=== PATIENT | male | born 1970 | race Caucasian/White ===

== ENCOUNTER 2016-10-08 04:26 | Emergency (ER) | payer MEDICAID ==
[2016-10-08] MEDS ORDERED: AZITHROMYCIN 250 MG TABLET PO STA (05:06)
[2016-10-08] MEDS ORDERED: DEXAMETHASONE 10 MG/ML VIAL PO STA (05:06)
[2016-10-08] MEDS ORDERED: DEXAMETHASONE 10 MG/ML VIAL ONE (05:12)
[2016-10-08] MEDS ORDERED: AZITHROMYCIN 250 MG TABLET PO ONE (05:12)
== END 2016-10-08 06:52 | disposition home or self-care (01) ==
DX: S80.11XA Contusion of right lower leg, initial encounter (principal); V18.4XXA Pedal cycle driver injured in noncollision transport accident in traffic accident, initial encounter; Y93.55 Activity, bike riding; Y92.410 Unspecified street and highway as the place of occurrence of the external cause; H66.002 Acute suppurative otitis media without spontaneous rupture of ear drum, left ear; F17.200 Nicotine dependence, unspecified, uncomplicated
CPT/HCPCS: 73590; 99283; A9270

== ENCOUNTER 2016-11-01 00:35 | Emergency (ER) | payer MEDICAID | END 2016-11-01 02:04 | disposition home or self-care (01) | DX: S63.502A Unspecified sprain of left wrist, initial encounter (principal); V18.4XXA Pedal cycle driver injured in noncollision transport accident in traffic accident, initial encounter; Y93.55 Activity, bike riding; Y92.488 Other paved roadways as the place of occurrence of the external cause; F17.200 Nicotine dependence, unspecified, uncomplicated ==

== ENCOUNTER 2017-06-23 17:55 | Outpatient (CLI) | payer OTHER, MEDICAID | END 2017-06-23 17:56 | disposition critical access hospital (66) | LOC: EMS 17:55 | PROVIDERS: ATTEND Surgery | DX: S80.211A Abrasion, right knee, initial encounter (principal); V03.19XA Pedestrian with other conveyance injured in collision with car, pick-up truck or van in traffic accident, initial encounter; Y93.55 Activity, bike riding; Y92.413 State road as the place of occurrence of the external cause | CPT/HCPCS: A0425; A0429 ==

== ENCOUNTER 2017-08-31 19:03 | Emergency (ER) | payer OTHER, MEDICAID ==
[2017-08-31] MEDS ORDERED: IBUPROFEN 800 MG TABLET PO STA (19:18)
[2017-08-31] MEDS ORDERED: HYDROcod/ACETAM 5/325 MG TABLET PO STA (19:18)
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
[2017-08-31 19:26] VITALS: BP 131/68
== END 2017-08-31 19:27 | disposition home or self-care (01) ==
LOC: ED 19:03
DX: M54.41 Lumbago with sciatica, right side (principal); V13.0XXA Pedal cycle driver injured in collision with car, pick-up truck or van in nontraffic accident, initial encounter; F17.200 Nicotine dependence, unspecified, uncomplicated
CPT/HCPCS: 99283; A9270

== ENCOUNTER 2017-09-15 13:03 | Outpatient (CLI) | payer OTHER, MEDICAID ==
--- NOTE | 2017-09-16 17:42 | XRAY Report ---
DATE OF SERVICE: 09/15/2017 TWO VIEW THORACIC SPINE: 09/15/2017 CLINICAL INDICATION: Back pain. Frontal and lateral views of the thoracic spine demonstrate mild degenerative disk disease. There is no evidence of fracture. No paraspinal hematoma is seen. IMPRESSION: Mild degenerative changes. No evidence of compression fracture. TD: 09/16/2017 18:41
--- NOTE | 2017-09-16 17:43 | XRAY Report ---
DATE OF SERVICE: 09/15/2017 THREE VIEW LUMBAR SPINE: 09/15/2017 CLINICAL INDICATION: Back pain. AP, lateral, coned-down views of the lumbar spine demonstrate mild degenerative disk disease. There is no evidence of compression fracture or subluxation. The bowel gas pattern is unremarkable. IMPRESSION: Mild degenerative disk disease. TD: 09/16/2017 18:42
--- NOTE | 2017-09-16 17:44 | XRAY Report ---
DATE OF SERVICE: 09/15/2017 RIGHT HIP AND PELVIS: 09/15/2017 CLINICAL INDICATION: Hip pain. Frontal view of the hips and pelvis and frogleg lateral view of the right hip demonstrate no evidence of fracture. The joint spaces are preserved. No radiopaque foreign body is seen in the soft tissues. IMPRESSION: Normal right hip. TD: 09/16/2017 18:42
== END 2017-09-15 13:04 | disposition home or self-care (01) ==
LOC: DI 13:03
PROVIDERS: ATTEND Nurse Practitioner Gerontology
DX: M51.34 Other intervertebral disc degeneration, thoracic region (principal); M51.36 Other intervertebral disc degeneration, lumbar region; M25.551 Pain in right hip
CPT/HCPCS: 72072; 72100